=== PATIENT | male | born 1995 | race Caucasian/White ===

== ENCOUNTER 2025-10-30 18:12 | Inpatient (IN) | payer BC ==
[~2025-10-30] VITALS: Ht 177.8 cm; Wt 79.8 kg
[2025-10-30] MEDS ORDERED: ONDANSETRON HCL/PF 4 MG/2 ML VIAL ONE ×2 (18:28→19:13)
[2025-10-30] MEDS ORDERED: LORAZEPAM INJ 2 MG/ML VIAL ONE (18:28)
[2025-10-30 18:46] LABS: PLATELET COUNT (AUTO) 334 K/uL (150-450); RED BLOOD CELL COUNT(AUTO) 4.76 MIL/uL (4.5-6.0); RED CELL DISTRIBUTION WIDTH 17.7 % (11.5-15.0); WHITE BLOOD COUNT (AUTO) 10.7 K/uL (4.3-11.0)
[2025-10-30] MEDS: ONDANSETRON HCL/PF - ER 4 MG/2 ML VIAL IV ONE ×2 (18:50→19:23)
[2025-10-30] MEDS: LORAZEPAM INJ 2 MG/ML VIAL IVP ONE (18:50)
[2025-10-30 18:54] LABS: CALCIUM, SERUM 9.0 mg/dL (8.5-10.1); CREATININE 1.4 mg/dL (0.6-1.3); SODIUM SERUM 142 mmol/L (136-145); UREA NITROGEN, BLOOD 12 mg/dL (7-18)
[2025-10-30 18:59] LABS: ASPARTATE AMINOTRANSFERASE 26 U/L (15-37); TOTAL PROTEIN, SERUM 7.9 g/dL (6.4-8.2)
[2025-10-30 19:00] LABS: ALCOHOL, BLOOD < 3 mg/dL (0-10)
[2025-10-30] MEDS: IV NS 0.9% 1,000 ML BAG IV ONE (19:00)
[2025-10-30] MEDS: LORAZEPAM INJ 2 MG/ML VIAL IV ONE (19:23)
[2025-10-30] MEDS ORDERED: FLUO20CA36 PO (19:35)
[2025-10-30] MEDS ORDERED: DIVA500T2 PO (19:35)
[2025-10-30] MEDS ORDERED: QUET100T PO (19:35)
[2025-10-30] MEDS ORDERED: MIRT-121 PO (19:35)
[2025-10-30] MEDS ORDERED: [UNRECOGNIZED DRUG - OTHER] PO (19:35)
[2025-10-30] MEDS ORDERED: GABA-536 PO (19:35)
[2025-10-30] MEDS ORDERED: CHOL500062 PO (19:35)
[2025-10-30] MEDS ORDERED: PRAZ1CAP5 PO (19:35)
[2025-10-30] MEDS ORDERED: FAMO-131 PO (19:35)
[2025-10-30 20:00] VITALS: BP 154/97; TEMP 97.9; O2SAT 99
[2025-10-30] MEDS ORDERED: HYDROMORPHONE 1 MG/1 ML DISP.SYRIN ONE (20:24)
[2025-10-30] MEDS: HYDROMORPHONE 1 MG/1 ML DISP.SYRIN IV ONE (20:33)
[2025-10-30] MEDS ORDERED: PROPOFOL 20 ML IV ONE (21:06)
[2025-10-30 21:08] LABS: AMPHETAMINE, URINE NEGATIVE (NEGATIVE); BARBITURATE, URINE POSITIVE (NEGATIVE); BENZODIAZEPINE, URINE POSITIVE (NEGATIVE); CANNABINOID, URINE POSITIVE (NEGATIVE); COCCAINE, URINE NEGATIVE (NEGATIVE); OPIATE, URINE NEGATIVE (NEGATIVE)
[2025-10-30] MEDS: PROPOFOL 200 MG/20 ML VIAL IV ONE (21:16)
[2025-10-30 21:21] VITALS: O2SAT 99
[2025-10-31] VITALS: BP 149/100; TEMP 97.9; O2SAT 97
[2025-10-31] MEDS ORDERED: MAG HYDROX/AL HYDROX/SIMETH 30 ML UDC PO PRN
[2025-10-31] MEDS ORDERED: MAGNESIUM HYDROXIDE 30 ML UDC PO PRN
[2025-10-31] MEDS: IV NS 0.9% 1,000 ML IV PRN (00:21)
[2025-10-31] MEDS: MIRTAZAPINE 15 MG TABLET PO SCH (00:21)
[2025-10-31] MEDS: QUETIAPINE FUMARATE 100 MG TABLET PO SCH (00:23)
[2025-10-31] MEDS: CHLORDIAZEPOXIDE HCL 25 MG CAPSULE PO SCH (00:23)
[2025-10-31] MEDS: HYDROCODONE/APAP 5/325MG TABLET PO PRN (00:58)
[2025-10-31] MEDS: ACETAMINOPHEN 325 MG TABLET PO PRN (05:23)
[2025-10-31] MEDS: ONDANSETRON HCL/PF 4 MG/2 ML VIAL IVP PRN (05:23)
[2025-10-31 06:16] LABS: PLATELET COUNT (AUTO) 293 K/uL (150-450); RED BLOOD CELL COUNT(AUTO) 4.30 MIL/uL (4.5-6.0); RED CELL DISTRIBUTION WIDTH 17.8 % (11.5-15.0); WHITE BLOOD COUNT (AUTO) 12.3 K/uL (4.3-11.0)
[2025-10-31 06:20] LABS: CALCIUM, SERUM 8.1 mg/dL (8.5-10.1); CREATININE 1.4 mg/dL (0.6-1.3); PHOSPHORUS 3.4 mg/dL (2.5-4.9); SODIUM SERUM 141.0 mmol/L (136-145); UREA NITROGEN, BLOOD 10.0 mg/dL (7-18)
[2025-10-31 08:00] VITALS: BP 149/95; TEMP 97.7; O2SAT 98
[2025-10-31] MEDS ORDERED: GABAPENTIN 300 MG CAPSULE PO PRN (08:00)
[2025-10-31] MEDS: THIAMINE HCL 100 MG TABLET PO SCH (09:03)
[2025-10-31] MEDS: DOCUSATE SODIUM 100 MG CAPSULE PO SCH (09:03)
[2025-10-31] MEDS: DIVALPROEX SODIUM 500 MG TABLET.DR PO SCH (09:03)
[2025-10-31] MEDS: PANTOPRAZOLE 40 MG VIAL IV SCH (09:03)
[2025-10-31] MEDS: FOLIC ACID 1 MG TABLET PO SCH (09:03)
[2025-10-31] MEDS: CHOLECALCIFEROL 1,000 UNIT TABLET (VIT D3) PO SCH (09:04)
[2025-10-31 09:05] VITALS: BP 149/95
[2025-10-31] MEDS: PRAZOSIN HCL 1 MG CAPSULE PO SCH (09:05)
[2025-10-31] MEDS: POTASSIUM CHLORIDE 20 MEQ TAB.PRT.SR PO SCH (09:54)
[2025-10-31] MEDS ORDERED: BUPR300T52 PO (10:27)
== END 2025-10-31 10:30 | disposition left against medical advice (07) | DRG 100 ==
LOC: ER 18:18 → TELE 21:12
PROVIDERS: ADMIT Nurse Practitioner Acute Care; ATTEND Internal Medicine
PROC: 0RSKXZZ Reposition Left Shoulder Joint, External Approach (ICD-10-PCS; principal; 2025-10-30)
DX: R56.9 Unspecified convulsions (principal); N17.0 Acute kidney failure with tubular necrosis; S42.292A Other displaced fracture of upper end of left humerus, initial encounter for closed fracture; S01.01XA Laceration without foreign body of scalp, initial encounter; E87.6 Hypokalemia; D64.9 Anemia, unspecified; F10.139 Alcohol abuse with withdrawal, unspecified; F19.10 Other psychoactive substance abuse, uncomplicated; S43.005A Unspecified dislocation of left shoulder joint, initial encounter; W19.XXXA Unspecified fall, initial encounter; Y92.89 Other specified places as the place of occurrence of the external cause; Y90.0 Blood alcohol level of less than 20 mg/100 ml; F41.9 Anxiety disorder, unspecified; Z53.29 Procedure and treatment not carried out because of patient's decision for other reasons; Z79.899 Other long term (current) drug therapy
CPT/HCPCS: 36415; 70450-TC; 71045-TC; 72125-TC; 73030-TC; 73200-TC; 80048-TC; 80076-TC; 83735-TC; 84100-TC; 85025-TC; A4223; G0378; G0480; G0500; J1171; J2060; J2405; J2470; J2704; J7030